=== PATIENT | female | born 1985 | race Caucasian/White ===

== ENCOUNTER 2017-04-28 10:29 | Inpatient (IN) | payer OTHER ==
[2017-04-28] MEDS ORDERED: BRETHINE SUB-Q PRN (13:04)
[2017-04-28] MEDS ORDERED: MINERAL OIL PO PRN (13:04)
[2017-04-28] MEDS ORDERED: XYLOCAINE 2% INFILTRATI ONE (13:04)
[2017-04-28] MEDS ORDERED: BRETHINE IVP PRN (13:04)
[2017-04-28] MEDS ORDERED: ePHEDrine SULFATE IV PRN (13:04)
[2017-04-28] MEDS ORDERED: SUBLIMAZE IV PRN (13:04)
[2017-04-28 13:24] LABS: Hematocrit 39.4 % (30.3-42.9); Hemoglobin 13.6 gm/dl (10.1-14.3); Mean Corpuscular HGB Conc 35 % (30-34); Mean Corpuscular Hemoglobin 33 pg (28-32); Mean Corpuscular Volume 94 fl (79-97); Platelet Count 205 K/mm3 (140-440); Red Blood Count 4.19 M/mm3 (3.65-5.03); Red Cell Distribution Width 16.5 % (13.2-15.2)
--- NOTE | 2017-04-28 13:29 | History and Physical Report ---
History of Present Illness Date of examination: 04/28/17 Date of admission: 04/28/17 10:30 Chief complaint: Contractions History of present illness: now 38.1 weeks GA. Presents in active labor. care at [facility] since 10 weeks GA. GBS negative. Past History Past Medical History: no pertinent history Past Surgical History: no surgical history Family/Genetic History: hypertension Social history: no significant social history - Obstetrical History Expected Date of Delivery: 05/11/17 Actual Gestation: 38 Week(s) 1 Day(s) : 2 Para: 1 Hx # Term Pregnancies: 1 Number of Pregnancies: 0 Spontaneous Abortions: 0 Induced : 0 Number of Living Children: 1 Medications and Allergies Allergies Allergy/AdvReac Type Severity Reaction Status Date / Time No Known Allergies Allergy Unverified 04/28/17 12:32 Active Meds: Active Medications Ephedrine Sulfate (Ephedrine Sulfate) 10 mg IV Q2M PRN PRN Reason: Hypotension Fentanyl (Sublimaze) 100 mcg IV Q2H PRN PRN Reason: Labor Pain Lactated Ringer's (Lactated Ringers) 1,000 mls @ 125 mls/hr IV DIRECT [place] Oxytocin/Sodium Chloride (Pitocin/Ns 20 Unit/1000ml Drip) 20 units in 1,000 mls @ 125 mls/hr IV DIRECT [place] Oxytocin/Sodium Chloride (Pitocin/Ns 30 Unit/500ml) 30 units in 500 mls @ 1 mls /hr IV TITR [place]; 1 MILLIUNITS/MIN PRN Reason: Protocol Oxytocin/Sodium Chloride (Pitocin/Ns 30 Unit/500ml) 30 units in 500 mls @ 2 mls /hr IV TITR [place] PRN Reason: Protocol Lactated Ringer's (Lactated Ringers) 1,000 mls @ 125 mls/hr IV DIRECT [place] Mineral Oil (Mineral Oil) 30 ml PO QHS PRN PRN Reason: Constipation Terbutaline Sulfate (Brethine) 0.25 mg SUB-Q ONCE PRN PRN Reason: Hyperstimulation/Hypertonicity Terbutaline Sulfate (Brethine) 0.25 mg IVP ONCE PRN PRN Reason: Hyperstimulation/Hypertonicity Review of Systems All systems: negative - Vital Signs Vital signs: Vital Signs Pulse BP 77 130/78 04/28/17 11:02 04/28/17 11:02 Temp Pulse Resp BP Pulse Ox 98.5 F 76 18 102/57 04/28/17 11:13 04/28/17 13:00 04/28/17 11:13 04/28/17 13:00 - Physical Exam Breasts: Positive: deferred Cardiovascular: Regular rate Lungs: Positive: Clear to auscultation Abdomen: Positive: normal appearance Genitourinary (Female): Positive: normal external genitalia Vulva: both: normal Vagina: Positive: normal moisture Uterus: Positive: enlarged Anus/Rectum: Positive: normal perianal skin Extremities: Positive: normal Deep Tendon Reflex Grade: Normal +2 - Obstetrical FHR: category 1 Uterine Contraction Monitor Mode: External Cervical Dilatation: 5 Cervical Effacement Percentage: 60 Uterine Contraction Frequency (min): q4 min Uterine Contraction Pattern: Regular Uterine Contraction Intensity: Moderate Results Result Diagrams: 04/28/17 12:40 Abnormal lab results 04/28/17 Range/Units 12:40 WBC 13.7 H (4.5-11.0) K/mm3 MCH 33 H (28-32) pg MCHC 35 H (30-34) % RDW 16.5 H (13.2-15.2) % All other labs normal. Assessment and Plan A: Active Labor at 38.1 wks GA. P: Expect . Pitocin augmentation.
[2017-04-28] MEDS ORDERED: PITOCin/NS 20 UNIT/1000ML DRIP 20 UNITS/1,000 ML BAG IV SCH (14:00)
[2017-04-28] MEDS ORDERED: PITOCin/NS 30 UNIT/500ML 30 UNITS/500 ML BAG IV SCH ×2 (14:00)
[2017-04-28] MEDS ORDERED: LACTATED RINGERS 1,000 ML IV SCH ×2 (14:00)
--- NOTE | 2017-04-28 17:14 | Event Note ---
Date: 04/28/17 S: Regular contractions, feels pressure, desires IV pain meds. O: VE: 8cm/90%/0 station/BBOW, Vertex. AROM clear fluids. Contractions q 3min, moderate. A: Active Labor P: Anticipate . Pitocin augmentation.
[2017-04-28] MEDS ORDERED: Fluarix Quad 2017-2018(36 MOS+ IM ONE (17:28)
--- NOTE | 2017-04-28 18:18 | Procedure Note ---
OB Delivery Note - Delivery Date of Delivery: 04/28/17 Estimated blood loss: 300cc - Vaginal Delivery presentation: vertex Delivery position: OA Intrapartum events: none, shoulder dystocia (mild 30 sec) Delivery induction: none Delivery augmentation: rupture of membranes, pitocin Delivery monitor: external FHT, external uterine Route of delivery: Delivery placenta: spontaneous Delivery cord: nuchal cord (x2) Episiotomy: none Delivery laceration: none Anesthesia: intravenous (1x) Delivery comments: at 1802 on 04/28/17 of viable female weighing 7# 4oz, tight nuchal cord x 2 , clamped and cut. Pt in McRobert's maneuver for delivery. Mild shoulder dystocia 30 seconds. Baby delivered spontaneously after cord cut and removed. Baby passed to NICU nurses, 7 & 9. Placenta delivered with trailing membranes. Fundus firm at U. EBL 300cc. Mother and baby doing well. - A at 1 minute: 7 at 5 minutes: 9 Infant Gender: Female (Weighing 7# 4oz.)
[2017-04-28] MEDS ORDERED: TYLENOL PO PRN (18:19)
[2017-04-28] MEDS ORDERED: LANSINOH TP PRN (18:19)
[2017-04-28] MEDS ORDERED: NORCO 5/325 PO PRN (18:19)
[2017-04-28] MEDS ORDERED: SODIUM CHLORIDE FLUSH SYRINGE 10 ML IV NR (19:00)
[2017-04-28] MEDS: MOTRIN PO SCH (23:40)
[2017-04-29] MEDS ORDERED: BOOSTRIX IM ONE (06:00)
[2017-04-29] MEDS: MOTRIN PO SCH ×2 (06:19→14:18)
[2017-04-29 06:29] LABS: Hematocrit 34.2 % (30.3-42.9); Hemoglobin 11.8 gm/dl (10.1-14.3)
--- NOTE | 2017-04-29 10:28 | Progress Note ---
Assessment and Plan A: PPD #1 - stable P: Discharge home in am Subjective - Subjective Date of service: 04/29/17 Principal diagnosis: Patient reports: appetite normal [place]an: doing well Objective - Vital Signs Latest vital signs: Vital Signs Temp Pulse Resp BP BP Pulse Ox 04/28/17 23:45 98.3 F 96 H 18 107/58 96 04/28/17 20:50 98.1 F 83 18 113/58 96 04/28/17 19:30 85 97/55 04/28/17 19:00 85 107/62 04/28/17 18:30 94 H 120/62 04/28/17 17:32 95 H 121/71 04/28/17 17:00 85 108/65 04/28/17 16:30 69 117/67 04/28/17 16:02 74 112/66 04/28/17 15:30 75 115/74 04/28/17 15:27 98.0 F 18 04/28/17 13:00 76 102/57 04/28/17 11:13 98.5 F 18 04/28/17 11:02 77 130/78 Intake and Output 04/28/17 04/29/17 04/29/17 22:59 06:59 14:59 Intake Total 240 Output Total 800 Balance -560 Intake: Oral 240 Output: Urine 800 Void 800 Other: Total, Intake Amount 120 Total, Output Amount 300 # Voids Void 1 Estimated Blood Loss 300 - Exam Breasts: Present: deferred Cardiovascular: Present: Regular rate Abdomen: Present: soft Vulva: both: normal Uterus: Present: fundal height below umbilicus Extremities: Present: normal Deep Tendon Reflex Grade: Normal +2 - Labs Labs: Abnormal lab results 04/28/17 Range/Units 12:40 WBC 13.7 H (4.5-11.0) K/mm3 MCH 33 H (28-32) pg MCHC 35 H (30-34) % RDW 16.5 H (13.2-15.2) %
--- NOTE | 2017-04-29 10:30 | Discharge Summary ---
Providers - Providers Date of Admission: 04/28/17 10:30 Date of discharge: 04/30/17 Attending physician: ERNESTINE EAGLE MD Primary care physician: ERNESTINE EAGLE MD Hospitalization Reason for admission: active labor Delivery: Episiotomy: none Laceration: none Other procedures: none complications: none Discharge diagnosis: IUP at term delivered [place] baby: female Condition at discharge: Good Disposition: DC-01 TO HOME OR SELFCARE Plan - Provider Discharge Summary Activity: routine, no sex for 6 weeks, no strenuous exercise Diet: routine Instructions: routine Additional instructions: [] Smoking cessation referral if applicable(refer to patient education folder for contact #) [] Refer to [facility]'s [facility] Booklet Call your doctor immediately for: * Fever > 100.5 * Heavy vaginal bleeding ( >1 pad per hour) * Severe persistent headache * Shortness of breath * Reddened, hot, painful area to leg or breast * Drainage or odor from incision. * Keep incision clean and dry at all times and follow doctor's instructions regarding bathing/showering - Follow up plan Follow up: ERNESTINE EAGLE MD [Primary Care Provider] - 6 Weeks
[2017-04-30] MEDS: MOTRIN PO SCH ×2 (00:15→05:23)
[2017-04-30 14:20] VITALS: BP 101/56
[2017-05-01] MEDS ORDERED: Fluarix Quad 2017-2018(36 MOS+ IM ONE (12:00)
== END 2017-04-30 17:48 | disposition home or self-care (01) | DRG 775 ==
LOC: TRG 10:29 → LD 10:30 → OB 19:59
PROVIDERS: ADMIT Obstetrics & Gynecology; ATTEND Obstetrics & Gynecology
PROC: 10E0XZZ Delivery of Products of Conception, External Approach (ICD-10-PCS; principal; 2017-04-28)
PROC: 3E0234Z Introduction of Serum, Toxoid and Vaccine into Muscle, Percutaneous Approach (ICD-10-PCS; 2017-04-28)
DX: O66.0 Obstructed labor due to shoulder dystocia (principal); Z3A.38 38 weeks gestation of pregnancy; Z37.0 Single live birth; O69.81X0 Labor and delivery complicated by cord around neck, without compression, not applicable or unspecified; Z23 Encounter for immunization
CPT/HCPCS: 36415; 85014; 85018; 85027; 86850; 86900; 86901; 90471; 90686; 90715; J2590; J3010; J7120

== ENCOUNTER 2019-02-01 22:25 | Inpatient (IN) | payer OTHER ==
[2019-02-02] MEDS ORDERED: BRETHINE SUB-Q PRN (00:46)
[2019-02-02] MEDS ORDERED: XYLOCAINE 2% INFILTRATI ONE ×2 (00:46→05:50)
[2019-02-02] MEDS ORDERED: AMPICILLIN/NS 2 GM/100 ML 2 GM/100 ML BAG IV ONE (00:46)
--- NOTE | 2019-02-02 00:54 | History and Physical Report ---
History of Present Illness Date of examination: 02/02/19 Date of admission: 02/02/19 Chief complaint: Contractions History of present illness: 33 year old female presents in labor. Patient received care at [facility] and she brings pr enatal records with her. LMP 05/06/18. EDC 02/10/19. significant for the following: GBS positive. labs are as follows: O+, antibody screen negative, rubella immune, hepatitis B surface antigen negative, HIV negative, RPR nonreactive, chlamydia negative, gonorrhea negative, quad screen negative, 1 hour sugar test 114, GBS positive. 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 denies: smoking, alcohol abuse, prescription drug abuse, IV drug use - Obstetrical History Expected Date of Delivery: 02/10/19 Actual Gestation: 38 Week(s) 6 Day(s) : 3 Para: 2 Hx # Term Pregnancies: 2 Number of Pregnancies: 0 Spontaneous Abortions: 0 Induced : 0 Number of Living Children: 2 Medications and Allergies Allergies Allergy/AdvReac Type Severity Reaction Status Date / Time No Known Allergies Allergy Unverified 04/28/17 12:32 Home Medications Medication Instructions Recorded Confirmed Last Taken Type No Known Home Medications [No 04/28/17 04/28/17 Unknown History Reported Home Medications] Active Meds: Active Medications Ephedrine Sulfate (Ephedrine Sulfate) 10 mg IV Q2M PRN PRN Reason: Hypotension Fentanyl (Sublimaze) 100 mcg IV Q2H PRN PRN Reason: Labor Pain Oxytocin/Sodium Chloride (Pitocin/Ns 20 Unit/1000ml Drip) 20 units in 1,000 mls @ 125 mls/hr IV DIRECT [place] Lactated Ringer's (Lactated Ringers) 1,000 mls @ 125 mls/hr IV DIRECT [place] Ampicillin Sodium (Ampicillin/Ns 2 Gm/100 Ml) 2 gm in 100 mls @ 100 mls/hr IV ONCE ONE; Protocol Stop: 02/02/19 01:45 Ampicillin Sodium (Ampicillin/Ns 1 Gm/50 Ml) 1 gm in 50 mls @ 100 mls/hr IV Q4HR [place]; Protocol Lidocaine (Xylocaine 2%) 20 ml INFILTRATI ONCE ONE Stop: 02/02/19 00:47 Terbutaline Sulfate (Brethine) 0.25 mg SUB-Q ONCE PRN PRN Reason: Hyperstimulation/Hypertonicity Review of Systems All systems: negative (contractions) - Vital Signs Vital signs: Vital Signs Temp Pulse Resp BP Pulse Ox 98.5 F 84 18 117/80 100 02/01/19 23:11 02/01/19 23:11 02/01/19 23:11 02/01/19 23:11 02/01/19 23:11 Temp Pulse Resp BP Pulse Ox 98.5 F 89 18 108/73 100 02/01/19 23:11 02/02/19 00:10 02/01/19 23:11 02/02/19 00:10 02/01/19 23:11 - Physical Exam Cardiovascular: Regular rate, Normal S1, Normal S2, No murmurs Lungs: Positive: Clear to auscultation Abdomen: Positive: normal appearance, soft. Negative: distention, tenderness, guarding, rigidity Genitourinary (Female): Positive: normal external genitalia, normal perenium. Negative: perineal/vulvar lesions (no lesions seen on careful exam with bright light upon admission) Vagina: Positive: normal moisture Uterus: Positive: enlarged Anus/Rectum: Positive: normal perianal skin Extremities: Positive: normal. Negative: tenderness, edema - Obstetrical FHR: category 1 Uterine Contraction Monitor Mode: External Cervical Dilatation: 6.5 Cervical Effacement Percentage: 90 station: -2 Uterine Contraction Pattern: Regular Uterine Contraction Intensity: Moderate Results Result Diagrams: 02/02/19 01:00 All other labs normal. Assessment and Plan A: at 38 weeks, 6 days gestation. Labor with advanced cervical dilation. GBS positive. P: Admit. GBS prophylaxis. Electronic monitoring. Anticipate vaginal .
[2019-02-02] MEDS ORDERED: LACTATED RINGERS 1,000 ML IV SCH (01:00)
[2019-02-02] MEDS ORDERED: PITOCin/NS 20 UNIT/1000ML DRIP 20 UNITS/1,000 ML BAG IV SCH (01:00)
[2019-02-02 01:41] LABS: Hematocrit 38.8 % (30.3-42.9); Hemoglobin 13.5 gm/dl (10.1-14.3); Mean Corpuscular HGB Conc 35 % (30-34); Mean Corpuscular Volume 96 fl (79-97); Platelet Count 181 K/mm3 (140-440); Red Blood Count 4.04 M/mm3 (3.65-5.03); Red Cell Distribution Width 13.7 % (13.2-15.2)
[2019-02-02] MEDS: SUBLIMAZE IV PRN ×2 (02:36→07:52)
[2019-02-02] MEDS ORDERED: AMPICILLIN/NS 1 GM/50 ML 1 GM/50 ML BAG IV SCH (04:51)
--- NOTE | 2019-02-02 05:34 | Event Note ---
Date: 02/02/19 SVE .
[2019-02-02] MEDS ORDERED: PITOCin/NS 30 UNIT/500ML 30 UNITS/500 ML BAG IV SCH (07:40)
[2019-02-02] MEDS ORDERED: PITOCin/NS 30 UNIT/500ML 30,000 MILLIUNITS/500 ML BAG IV ONE (07:40)
[2019-02-02] MEDS ORDERED: MINERAL OIL PO PRN (07:59)
--- NOTE | 2019-02-02 07:59 | Event Note ---
Date: 02/02/19 Patient is now completely dilated and 0 station but does not wish to push right now. Patient declines epidural. Contractions have spaced. Low dose Pitocin ordered and IV Fentanyl given; will allow patient to labor down until she has more of an urge to push. Category 1 heart rate tracing. Vital signs stable. Amniotic fluid is clear.
[2019-02-02] MEDS ORDERED: CYTOTEC ONE (09:12)
[2019-02-02] MEDS ORDERED: CYTOTEC PR ONE (09:20)
[2019-02-02] MEDS ORDERED: LANSINOH TP PRN (09:23)
[2019-02-02] MEDS ORDERED: TUCKS PAD TP PRN (09:23)
--- NOTE | 2019-02-02 09:32 | Procedure Note ---
OB Delivery Note - Delivery Date of Delivery: 02/02/19 Surgeon: NAZANIN RIVAS Estimated blood loss: other (250 cc) - Vaginal Delivery presentation: vertex Delivery position: OA Intrapartum events: meconium, shoulder dystocia, other(please specify) (tight nuchal cord times 1) Delivery induction: none Delivery augmentation: pitocin Delivery monitor: external FHT, external uterine Route of delivery: Delivery placenta: spontaneous Delivery cord: nuchal cord, 3 umbilical vessels Episiotomy: none Delivery laceration: none Anesthesia: none Delivery comments: Spontaneous vaginal delivery at 08:59 of liveborn female weighing 7 lb. 8 oz. over intact perineum with apgars of 7/9. Patient received Fentanyl within 2 hours prior to delivery; NICU present for delivery. After delivery of head, tight nuchal cord was noted times 1; this was unable to be manually reduced so nuchal cord was double clamped and cut on perineum. Mild shoulder dystocia noted, resolved with Geena maneuver and delivery of posterior shoulder. Shoulder and body cord manually reduced after delivery of shoulders and body. Baby taken to radiant warmer immediately after for evaluation. Spontaneous cry and respirations. 3 vessel cord; cord blood obtained. Spontaneous delivery of intact placenta and membranes by hernandez mechanism at 09:03. Patient had pulled IV out so Pitocin was given IM, and Cytotec 800 mcg was also given rectally for uterine atony until IV could be restarted. Fundal massage performed and fundus became firm and was in midline position. EBL 250 cc. No lacerations noted. Vaginal sweep negative. Sponge count correct. Mother and baby stable. Baby is moving all extremities well.
[2019-02-02] MEDS ORDERED: SODIUM CHLORIDE FLUSH SYRINGE 10 ML IV NR (10:00)
[2019-02-02] MEDS ORDERED: METHERGINE IM ONE (10:14)
--- NOTE | 2019-02-02 10:17 | Event Note ---
Date: 02/02/19 Pt. had 100 to 150 cc gush of blood. Fundus is now firm. IM Methergine ordered. Pt. up to empty her bladder. Lochia is now small in amount; no large clots.
[2019-02-02] MEDS: IBUPROFEN PO SCH (15:40)
[2019-02-02] MEDS: NORCO 5/325 PO PRN (15:43)
[2019-02-02] MEDS: FEOSOL PO SCH (15:52)
[2019-02-02] MEDS: COLACE PO SCH (15:52)
[2019-02-02] MEDS: PRENATAL VITAMIN PO SCH (15:53)
[2019-02-02 21:13] LABS: Hematocrit 31.8 % (30.3-42.9); Hemoglobin 11.3 gm/dl (10.1-14.3)
[2019-02-02] MEDS ORDERED: MILK OF MAGNESIA PO PRN (22:00)
[2019-02-03] MEDS: NORCO 5/325 PO PRN (00:24)
[2019-02-03] MEDS: IBUPROFEN PO SCH ×3 (05:40→17:56)
[2019-02-03] MEDS: PRENATAL VITAMIN PO SCH (10:27)
[2019-02-03] MEDS: FEOSOL PO SCH ×2 (10:27→22:11)
[2019-02-03] MEDS: COLACE PO SCH ×2 (10:27→22:13)
--- NOTE | 2019-02-03 13:20 | Progress Note ---
Assessment and Plan A: day 1 S/P spontaneous vaginal delivery. P: Continue current management. Recheck H&H in AM. Subjective - Subjective Date of service: 02/03/19 Principal diagnosis: day 1 Interval history: day 1 S/P spontaneous vaginal delivery. Doing well. Patient reports small amount of lochia. Voiding without difficulty. Ambulating well. Tolerating a regular diet. Patient denies headache, chest pain, shortness of breath, cough, leg pain, or abdominal pain. Patient denies heavy vaginal bleeding. Patient reports: appetite normal, voiding normally, pain well controlled, flatus, ambulating normally, no dizzy ambulation, no nauseated Hank[place]: doing well Objective - Vital Signs Latest vital signs: Vital Signs Temp Pulse Resp BP BP Pulse Ox 02/03/19 12:33 18 02/03/19 08:02 97.9 F 73 18 99/63 98 02/03/19 00:24 96/53 02/03/19 00:22 98.0 F 83 18 88/46 96 02/02/19 21:08 98.3 F 75 18 84/51 96 02/02/19 15:33 99.8 F H 89 20 97/58 95 Intake and Output 02/02/19 02/03/19 02/03/19 23:59 07:59 15:59 Intake Total 320 240 240 Output Total 850 400 Balance -530 -160 240 Intake: Oral 320 240 240 Output: Urine 850 400 Void 850 400 Other: Total, Intake Amount 120 120 240 Total, Output Amount 400 400 # Voids Void 1 - Exam Cardiovascular: Present: Regular rate, Normal S1, Normal S2 Lungs: Present: Clear to auscultation Abdomen: Present: normal appearance, soft. Absent: distention, tenderness, guarding, rigidity Uterus: Present: normal, firm, fundal height below umbilicus. Absent: bogginess, tenderness Extremities: Present: normal. Absent: tenderness, edema
[2019-02-04] MEDS: IBUPROFEN PO SCH ×3 (00:01→12:52)
--- NOTE | 2019-02-04 09:51 | Progress Note ---
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 Patient reports: appetite normal, voiding normally, pain well controlled, ambulating normally, no dizzy ambulation [place]: doing well, nursing well Objective - Vital Signs Latest vital signs: Vital Signs Temp Pulse Resp BP BP Pulse Ox 02/04/19 07:40 98.2 F 65 18 102/63 02/04/19 00:52 97.9 F 66 20 101/51 95 02/03/19 17:56 18 02/03/19 16:54 98.4 F 79 18 97/58 96 02/03/19 12:33 18 Intake and Output 02/03/19 02/04/19 02/04/19 23:59 07:59 15:59 Intake Total 480 480 Balance 480 480 Intake: Oral 480 480 Other: Total, Intake Amount 480 480 Voiding Method Toilet # Voids Void 1 - Exam Cardiovascular: Present: Regular rate Abdomen: Present: normal appearance, soft Vulva: both: normal Uterus: Present: normal, firm, fundal height below umbilicus Extremities: Present: normal Comments: scant lochia
--- NOTE | 2019-02-04 09:55 | Discharge Summary ---
Providers - Providers Date of Admission: 02/02/19 02:15 Date of discharge: 02/04/19 Attending physician: DEEP VARGAS MD Primary care physician: ERNESTINE EAGLE MD Hospitalization Reason for admission: active labor, IUP at term Delivery: Episiotomy: none Laceration: none Other procedures: none complications: none Discharge diagnosis: IUP at term delivered baby: female Hospital course: Uncomplicated Condition at discharge: Stable Disposition: [facility]-01 TO HOME OR SELFCARE - Discharge Diagnoses (1) Status post normal vaginal delivery Status: Acute Plan - Provider Discharge Summary Activity: routine, no sex for 6 weeks, no heavy lifting 4 weeks, no strenuous exercise Diet: routine Instructions: routine Additional instructions: [] Smoking cessation referral if applicable(refer to patient education folder for contact #) [] Refer to [facility]'s [facility] Booklet Call your doctor immediately for: * Fever > 100.5 * Heavy vaginal bleeding ( >1 pad per hour) * Severe persistent headache * Shortness of breath * Reddened, hot, painful area to leg or breast * Drainage or odor from incision. * Keep incision clean and dry at all times and follow doctor's instructions regarding bathing/showering - Follow up plan Follow up: ERNESTINE EAGLE MD [Primary Care Provider] - 6 Weeks (Follow-up at [facility] as needed or in 6 weeks for exam)
[2019-02-04] MEDS: PRENATAL VITAMIN PO SCH (10:26)
[2019-02-04] MEDS: FEOSOL PO SCH (10:26)
[2019-02-04] MEDS: COLACE PO SCH (10:26)
[2019-02-04 11:32] LABS: Hematocrit 33.9 % (30.3-42.9); Hemoglobin 11.7 gm/dl (10.1-14.3)
[2019-02-04 14:24] VITALS: BP 103/65
== END 2019-02-04 14:35 | disposition home or self-care (01) | DRG 807 ==
LOC: TRG 22:25 → LD 02-02 02:15 → OB 02-02 10:41
PROVIDERS: ADMIT Obstetrics & Gynecology; ATTEND Obstetrics & Gynecology
PROC: 10E0XZZ Delivery of Products of Conception, External Approach (ICD-10-PCS; principal; 2019-02-02)
DX: O77.0 Labor and delivery complicated by meconium in amniotic fluid (principal); Z37.0 Single live birth; O99.824 Streptococcus B carrier state complicating childbirth; O66.0 Obstructed labor due to shoulder dystocia; O69.1XX0 Labor and delivery complicated by cord around neck, with compression, not applicable or unspecified; Z3A.38 38 weeks gestation of pregnancy; E66.01 Morbid (severe) obesity due to excess calories; Z71.3 Dietary counseling and surveillance; Z82.49 Family history of ischemic heart disease and other diseases of the circulatory system
CPT/HCPCS: 36415; 85014; 85018; 85027; 86592; 86850; 86900; 86901; 96360; 96361; 96372; 96374; G0378; J0290; J2590; J3010; J7120